=== PATIENT | female | born 1990 | race Caucasian/White ===

== ENCOUNTER 2022-03-13 23:08 | Emergency (ER) | payer SELFPAY ==
[2022-03-14 00:17] VITALS: BP 139/77
[2022-03-14 00:25] LABS: Bilirubin,Urine NEG (Negative); Blood,Urine NEG (Negative); Color,Urine Colorless (Yellow); Protein,Urine <15 mg/dL mg/dL (Negative); Urobilinogen,Urine < 2.0 mg/dL (<2.0)
[2022-03-14 00:59] LABS: Basophils % (Auto) 0.2 % (0.0-1.8); Eosinophils # (Auto) 0.4 K/mm3 (0.0-0.4); Eosinophils % (Auto) 3.5 % (0.0-4.3); Hematocrit 38.9 % (30.3-42.9); Hemoglobin 12.9 gm/dl (10.1-14.3); Lymphocytes # (Auto) 4.4 K/mm3 (1.2-5.4); Lymphocytes % (Auto) 35.3 % (13.4-35.0); Mean Corpuscular HGB Conc 33 % (30-34); Mean Corpuscular Volume 89 fl (79-97); Monocytes # (Auto) 0.9 K/mm3 (0.0-0.8); Monocytes % (Auto) 7.5 % (0.0-7.3); Platelet Count 359 K/mm3 (140-440); Red Blood Count 4.39 M/mm3 (3.65-5.03); Red Cell Distribution Width 13.7 % (13.2-15.2)
[2022-03-14 01:00] LABS: Alanine Aminotransferase 25 units/L (7-56); Albumin 4.7 g/dL (3.9-5); Blood Urea Nitrogen 17 mg/dL (7-17); Calcium 9.1 mg/dL (8.4-10.2); Hemolysis Index 9
[2022-03-14 01:23] LABS: BUN/Creatinine Ratio 43
--- NOTE | 2022-03-14 01:50 | Ultrasound Report ---
ULTRASOUND ABDOMEN, LIMITED INDICATION / CLINICAL INFORMATION: abdominal pain - RUQ. COMPARISON: None available. TECHNIQUE: Using transcutaneous protocol multiple grayscale and color Doppler images were captured an d stored of the pancreas, liver, aorta, inferior vena cava, gallbladder, common bile duct, and right kidney. FINDINGS: PANCREAS: Visualized portion shows no significant abnormality. AORTA: Longitudinal images of the aorta demonstrate no significant abnormality. IVC: Longitudinal images of the inferior vena cava demonstrate no significant abnormality. LIVER: Liver demonstrates a heterogeneous pattern of hyperechoic echotexture without focal mass. Righ t hepatic lobe measures 17 cm. Normal hepatopedal blood flow in the main portal vein. GALLBLADDER: Multiple gallstones and/or sludge are present. Gallbladder wall measures up to 3.5 mm. BILE DUCTS: No significant abnormality. Common bile duct measures 3.8 mm. RIGHT KIDNEY: No acute findings are suggested to involve the right kidney. FREE FLUID: None. ADDITIONAL FINDINGS: None. IMPRESSION: 1. Multiple gallstones with some areas of suggested gallbladder wall thickening. No pericholecystic f luid. 2. Heterogeneously hyperechoic appearance of the liver could reflect evidence of hepatic steatosis. Signer Name: Carlos Eduardo Palencia II, MD Signed: 03/14/2022 1:45 AM Workstation Name: [id number]
--- NOTE | 2022-03-14 05:41 | Emergency Department Report ---
ED Abdominal Pain HPI - General Chief Complaint: Abdominal Pain Stated Complaint: STOMACH PAIN Source: patient Mode of arrival: Ambulatory Limitations: Language Barrier - History of Present Illness Initial Comments: Patient is a 31-year-old female with no past medical history who presents to the ED with complaint of acute onset persistent right upper quadrant pain that radiates to the epigastric area with nausea and vomiting for the last 8 hours. Patient states that the pain started after eating some male and that the pain has been constant and persistent. Patient denies dizziness, syncope, dysuria, urinary frequency and urgency, flank pain, vaginal bleeding, vaginal discharge, diarrhea, fever, chills, cough, chest pain, shortness of breath, neck pain, back pain or urinary frequency and urgency. MD Complaint: abdominal pain (RUQ abdominal pain), other (Nausea and vomiting) -: Sudden, hour(s) (8) Location: RUQ, epigastric Radiation: RUQ, epigastric Migration to: no migration Severity scale (0 -10): 8 Quality: aching, sharp Improves With: nothing Worsens With: eating, vomiting Associated Symptoms: denies other symptoms, nausea, vomiting, anorexia. denies: diarrhea, fever, chills, constipation, dysuria, hematemesis, hematochezia, melena, hematuria, syncope, other - Related Data Previous Rx's Medication Instructions Recorded Last Taken Type Acetaminophen/Codeine [Tylenol 1 tab PO Q6H PRN #12 tab 03/14/22 Unknown Rx /Codeine # 3 tab] Dicyclomine [Bentyl] 20 mg PO Q6H PRN #30 tablet 03/14/22 Unknown Rx Famotidine [Pepcid] 20 mg PO BID #60 tablet 03/14/22 Unknown Rx Ondansetron [Zofran Odt] 4 mg PO Q8HR PRN #20 tab.rapdis 03/14/22 Unknown Rx ED Review of Systems ROS: Stated complaint: STOMACH PAIN Other details as noted in HPI Constitutional: denies: chills, fever Eyes: denies: eye pain, eye discharge, vision change ENT: denies: ear pain, throat pain Respiratory: denies: cough, shortness of breath, wheezing Cardiovascular: denies: chest pain, palpitations Endocrine: no symptoms reported Gastrointestinal: abdominal pain (Right upper quadrant and epigastric pain), nausea, vomiting. denies: diarrhea Genitourinary: denies: urgency, dysuria, discharge Musculoskeletal: denies: back pain, joint swelling, arthralgia Skin: denies: rash, lesions Neurological: denies: headache, weakness, paresthesias Psychiatric: denies: anxiety, depression Hematological/Lymphatic: denies: easy bleeding, easy bruising ED Past Medical Hx - Medications Home Medications: Home Medications Medication Instructions Recorded Confirmed Last Taken Type Acetaminophen/Codeine [Tylenol 1 tab PO Q6H PRN #12 tab 03/14/22 Unknown Rx /Codeine # 3 tab] Dicyclomine [Bentyl] 20 mg PO Q6H PRN #30 tablet 03/14/22 Unknown Rx Famotidine [Pepcid] 20 mg PO BID #60 tablet 03/14/22 Unknown Rx Ondansetron [Zofran Odt] 4 mg PO Q8HR PRN #20 tab.rapdis 03/14/22 Unknown Rx ED Physical Exam - General Limitations: Language Barrier General appearance: alert, in no apparent distress - Head Head exam: Present: atraumatic, normocephalic, normal inspection - Eye Eye exam: Present: normal appearance, PERRL, EOMI Pupils: Present: normal accommodation - ENT ENT exam: Present: normal exam, normal orophraynx, mucous membranes moist, TM's normal bilaterally, normal external ear exam - Neck Neck exam: Present: normal inspection, full ROM. Absent: tenderness - Respiratory Respiratory exam: Present: normal lung sounds bilaterally. Absent: respiratory distress, wheezes, rales, rhonchi, stridor, chest wall tenderness, accessory muscle use, decreased breath sounds, prolonged expiratory - Cardiovascular Cardiovascular Exam: Present: regular rate, normal rhythm, normal heart sounds. Absent: systolic murmur, diastolic murmur, rubs, gallop - GI/Abdominal GI/Abdominal exam: Present: soft, tenderness (Palpable right upper quadrant and epigastric tenderness with positive Villavicencio sign), guarding, normal bowel sounds. Absent: rebound, rigid, hyperactive bowel sounds, hypoactive bowel sounds, organomegaly, pulsatile mass - Extremities Exam Extremities exam: Present: normal inspection, full ROM, normal capillary refill - Back Exam Back exam: Present: normal inspection, full ROM. Absent: tenderness, CVA tenderness (R), CVA tenderness (L), muscle spasm, paraspinal tenderness, vertebral tenderness - Neurological Exam Neurological exam: Present: alert, oriented X3, CN II-XII intact, normal gait, reflexes normal - Psychiatric Psychiatric exam: Present: normal affect, normal mood - Skin Skin exam: Present: warm, dry, intact, normal color. Absent: rash ED Course Vital Signs 03/13/22 23:48 Temperature 97.9 F Pulse Rate 87 Respiratory 18 Rate Blood Pressure 139/77 O2 Sat by Pulse 100 Oximetry ED Medical Decision Making - Lab Data Result diagrams: 03/14/22 00:04 03/14/22 00:04 - Radiology Data Radiology results: report reviewed, image reviewed [facility] [address] [place] [address] Ultrasound Report Signed Patient: POOL ALCALA MR #: [id number] : 1990 Acct:[id number] Age/Sex: 31 / F ADM Date: 03/13/22 Loc: ED Attending Dr: Ordering Physician: ROGER AQUINO Date of Service: 03/13/22 Procedure(s): US abdomen limited Accession Number(s): [id number] cc: ROGER AQUINO ULTRASOUND ABDOMEN, LIMITED INDICATION / CLINICAL INFORMATION: abdominal pain - RUQ. COMPARISON: None available. TECHNIQUE: Using transcutaneous protocol multiple grayscale and color Doppler images were captured and stored of the pancreas, liver, aorta, inferior vena cava, gallbladder, common bile duct, and right kidney. FINDINGS: PANCREAS: Visualized portion shows no significant abnormality. AORTA: Longitudinal images of the aorta demonstrate no significant abnormality. IVC: Longitudinal images of the inferior vena cava demonstrate no significant abnormality. LIVER: Liver demonstrates a heterogeneous pattern of hyperechoic echotexture without focal mass. Right hepatic lobe measures 17 cm. Normal hepatopedal blood flow in the main portal vein. GALLBLADDER: Multiple gallstones and/or sludge are present. Gallbladder wall measures up to 3.5 mm. BILE DUCTS: No significant abnormality. Common bile duct measures 3.8 mm. RIGHT KIDNEY: No acute findings are suggested to involve the right kidney. FREE FLUID: None. ADDITIONAL FINDINGS: None. IMPRESSION: 1. Multiple gallstones with some areas of suggested gallbladder wall thickening. No pericholecystic fluid. 2. Heterogeneously hyperechoic appearance of the liver could reflect evidence of hepatic steatosis. Signer Name: Jose Juan Durham II, MD Signed: 03/14/2022 1:45 AM Workstation Name: [id number] Transcribed By: GABRIEL Dictated By: JOSE JUAN DURHAM II, MD Electronically Authenticated By: JOSE JUAN DURHAM II, MD Signed Date/Time: 03/14/22144 DD/ 3 TD/TT: - Medical Decision Making This is a 31-year-old female with no past medical history who presents to the ED with complaint of acute onset persistent right upper quadrant pain that radiates to the epigastric area with nausea and vomiting for the last 8 hours. Patient states that the pain started after eating some male and that the pain has been constant and persistent. In the ED, patient is alert and oriented x3 and is not in any distress. Patient was treated in the ED for pain. Lab test results were reviewed and showed acute leukocytosis of 12,400 the rest of the lab test results were nonactionable. Gallbladder ultrasound showed multiple gallstones with some areas of suggested gallbladder wall thickening. No pericholecystic fluid. It also showed heterogeneously hyperechoic appearance of the liver could reflect evidence of hepatic steatosis. These findings were discussed with the ED attending physician Dr. Jay who agreed with the plan of care to discharge patient home to follow-up outpatient with a general surgeon on-call Dr. Mendieta or to follow-up with her primary care physician. Lifestyle changes were also stressed for the patient in order to lose weight to improve on her hepatic steatosis. Patient verbalized understanding. Patient was discharged home on pain medications and antiemetics as well as antacids and was also given a referral to the general surgeon on-call Dr. Mendieta in 3 to 5 days for further evaluation. Patient was also advised to follow-up with her primary care physician in 7 to 10 days for reevaluation. - Differential Diagnosis Cholelithiasis; biliary colic; GERD; gastroenteritis; cholecystitis; UTI Critical care attestation.: If time is entered above; I have spent that time in minutes in the direct care of this critically ill patient, excluding procedure time. ED Disposition Clinical Impression: Acute abdominal pain in right upper quadrant, Nausea and vomiting in adult patient, Biliary colic, Cholelithiasis without cholecystitis Disposition: 01 HOME / SELF CARE / HOMELESS Is pt being admited?: No Does the pt Need Aspirin: No Condition: Stable Instructions: Abdominal Pain (ED), Cholelithiasis, [id number], Abdominal Pain, Adult, [id number], Nausea and Vomiting, Adult, [id number], Gallbladder Eating Plan, Biliary Colic, Adult Additional Instructions: Todos los resultados de las pruebas de laboratorio fueron revisados ??y no son procesables. La ecografa de la vescula biliar mostr mltiples clculos biliares con algunas reas de engrosamiento de la pared de la vescula biliar s ugerida. Sin lquido pericolecstico. Tambin mostr lety apariencia hiperecoica heterognea del hgado que podra reflejar evidencia de esteatosis heptica. Por lo tanto, tome los medicamentos con alimentos, jose muchos lquidos y pablo un seguimiento con el cirujano general Dr. Mendieta en 3 a 5 aaron. Considere cambios en el estilo de rohit, prdida de peso y observe lety dieta adecuada para mejorar josafat sntomas. Considere hacer un seguimiento con garcia mdico de atencin primaria en 7 a 10 aaron para lety evaluacin adicional. Regrese al servicio de urgencias inmediatamente si los sntomas empeoran. Prescriptions: Dicyclomine [Bentyl] 20 mg PO Q6H PRN #30 tablet PRN Reason: Abdominal pain Famotidine [Pepcid] 20 mg PO BID #60 tablet Acetaminophen/Codeine [Tylenol /Codeine # 3 tab] 1 tab PO Q6H PRN #12 tab PRN Reason: Pain , Severe (7-10) Ondansetron [Zofran Odt] 4 mg PO Q8HR PRN #20 tab.rapdis PRN Reason: Nausea Referrals: [facility] [Provider Group] - 7-10 days INGRID MENDIETA MD [Staff Physician] - 3-5 Days Forms: Work/School Release Form(ED) Time of Disposition: 05:56 Print Language: SAMI
[2022-03-14] MEDS ORDERED: HYDROcodone/ACETAMINOPHEN 5-325 MG TAB PO ONE (07:00)
[2022-03-14] MEDS ORDERED: FAMOTIDINE 20 MG TAB PO ONE (07:00)
[2022-03-14] MEDS ORDERED: ONDANSETRON 4 MG ODT TAB PO ONE (07:00)
== END 2022-03-14 06:30 | disposition home or self-care (01) ==
LOC: ED 23:08
DX: R10.11 Right upper quadrant pain (principal); R10.13 Epigastric pain; R11.2 Nausea with vomiting, unspecified; K80.50 Calculus of bile duct without cholangitis or cholecystitis without obstruction; K80.20 Calculus of gallbladder without cholecystitis without obstruction; Z79.899 Other long term (current) drug therapy
CPT/HCPCS: 36415; 76705; 80053; 81001; 83690; 84703; 85025; 99284; J3490; Q0162